=== PATIENT | male | born 1970 | race Two or more races ===

== ENCOUNTER 2023-05-05 15:00 | Emergency (ER) | payer MEDICAID, OTHER ==
[~2023-05-05] VITALS: Ht 190.5 cm; Wt 69.4 kg
[2023-05-05 15:06] VITALS: BP 137/77; TEMP 98
[2023-05-05] MEDS ORDERED: CARBAMIDE PEROXIDE OTIC 15 ML BOTTLE OT ONE (16:00)
[2023-05-05] MEDS ORDERED: CARBAMIDE PEROXIDE OTIC 15 ML BOTTLE ONE (16:10)
[2023-05-05 16:25] VITALS: O2SAT 97
== END 2023-05-05 16:25 | disposition home or self-care (01) ==
LOC: ER 15:05
DX: H61.21 Impacted cerumen, right ear (principal)
CPT/HCPCS: 99284; 69210; A6403